=== PATIENT | female | born 1990 | race African-American/Black ===

== ENCOUNTER 2018-02-20 17:39 | Emergency (ER) | payer OTHER ==
[~2018-02-20] VITALS: Ht 167.6 cm; Wt 78.0 kg
[2018-02-20 17:43] VITALS: BP 116/64
[2018-02-20] MEDS ORDERED: FLEXERIL PO (17:56)
== END 2018-02-20 18:28 | disposition home or self-care (01) ==
LOC: ER 17:39
DX: M62.830 Muscle spasm of back (principal); E11.9 Type 2 diabetes mellitus without complications